=== PATIENT | female | born 1985 | race Caucasian/White ===

== ENCOUNTER 2016-12-06 16:54 | Emergency (ER) | payer OTHER ==
[2016-12-06 17:03] VITALS: BMI 65.1
[2016-12-06] MEDS ORDERED: SODIUM CHLORIDE 1,000 ML IV STA (17:28)
[2016-12-06] MEDS ORDERED: KETOROLAC TROMETHAMINE 30 MG/1 ML VIAL IVPUSH ONE (17:28)
[2016-12-06] MEDS ORDERED: KETOROLAC TROMETHAMINE 30 MG/1 ML VIAL ONE (17:45)
--- NOTE | 2016-12-06 18:09 | PDOC ---
History of Present Illness - History of Present Illness Initial Comments: 12/06/16 18:09 Patient is a 31 year old female with significant medical hx of celiac disease, fibroids, intermittent positive rheumatoid factor, fibromyalgia, iron deficiency , and asthma who is presenting to the ED with two days of abdominal pain and nausea. Patient is complaining of diffuse abdominal pain, characterized as pressure and sharp, that worsens with positional change. Her pain also radiates around to the back. Patient endorses having gas with her pain which makes her pain worse. Today the patient had two normal bowel movements without any blood. She notes that she has 2-3 bowel movements a day at baseline. The patient reports she had macaroni and cheese yesterday which aggravated her symptoms associated with celiac but feels that she passed the food through her stool already. She denies any fevers, chills, vomiting or diarrhea. GI: Darius Covarrubias MD Allergies: acetaminophen <Sanjuanita Culp - Last Filed: 12/06/16 19:47> <Kofi Adkins - Last Filed: 12/06/16 19:50> - General Chief Complaint: Pain Stated Complaint: STOMACH PAIN Time Seen by Provider: 12/06/16 17:08 Past History <Sanjuanita Culp - Last Filed: 12/06/16 19:47> - Past Medical History Anemia: Yes Asthma: Yes GI Disorders: Yes (CELIAC) Liver Disease: Yes (elevated liver enzymes) - Immunization History Immunization Up to Date: Yes - Psycho/Social/Smoking Cessation Hx Anxiety: No Suicidal Ideation: No Smoking Status: Yes Smoking History: Current every day smoker Number of Cigarettes Smoked Daily: 2 Information on smoking cessation initiated: Yes 'Breaking Loose' booklet given: 12/06/16 Hx Alcohol Use: No Drug/Substance Use Hx: No Substance Use Type: None <Kofi Adkins - Last Filed: 12/06/16 19:50> - Past Medical History Allergies/Adverse Reactions: Allergies Allergy/AdvReac Type Severity Reaction Status Date / Time acetaminophen [From Tylenol] AdvReac Verified 12/06/16 17:03 Home Medications: Ambulatory Orders Albuterol Sulfate Inhaler - [Ventolin HFA Inhaler -] 1 - 2 inh PO Q4H #1 inhaler 07/13/15 Prednisone [Deltasone -] 40 mg PO DAILY #8 tablet 07/13/15 Tramadol HCl 50 mg PO Q6H #9 tablet 07/13/15 Review of Systems - Review of Systems Comments:: 12/06/16 18:10 CONSTITUTIONAL: No fever, no chills, no fatigue EYES: No visual changes ENT: No ear pain, no sore throat CARDIOVASCULAR: No chest pain, no palpitations RESPIRATORY: No cough, no SOB GI: Nausea, abdominal pain. No vomiting, no constipation, no diarrhea GENITOURINARY: No dysuria, no frequency, no hematuria MUSKULOSKELETAL: No backpain, no joint pain, no myalgias SKIN: No rash NEURO: No headache <Sanjuanita Culp - Last Filed: 12/06/16 19:47> *Physical Exam - Vital Signs Last Vital Signs Temp Pulse Resp BP Pulse Ox 98.0 F 81 20 138/70 100 12/06/16 17:00 12/06/16 17:00 12/06/16 17:00 12/06/16 17:00 12/06/16 17:00 - Physical Exam Comments: 12/06/16 18:12 CONSTITUTIONAL: Well-appearing; well-nourished; in no apparent distress HEAD: Normocephalic; atraumatic EYES: PERRL; EOM intact ENMT: External appears normal; normal oropharynx NECK: Supple; non-tender; no cervical lymphadenopathy CARD: Normal S1, S2; no murmurs, rubs, or gallops RESP: Normal chest excursion with respiration; breath sounds clear and equal bilaterally; no wheezes, rhonchi, or rales ABD: Soft, non-distended; suparpubic and LLQ tenderness; no palpable organomegaly, no palpable hernias EXT: Normal ROM in all four extremities; non-tender to palpation; distal pulses intact SKIN: Warm, dry, no rash NEURO: No focal neurological deficiencies. <Sanjuanita Culp - Last Filed: 12/06/16 19:47> - Vital Signs Last Vital Signs Temp Pulse Resp BP Pulse Ox 98.0 F 81 20 138/70 100 12/06/16 17:00 12/06/16 17:00 12/06/16 17:00 12/06/16 17:00 12/06/16 17:00 <Kofi Adkins - Last Filed: 12/06/16 19:50> ED Treatment Course - LABORATORY CBC & Chemistry Diagram: 12/06/16 17:44 12/06/16 17:44 - RADIOLOGY Radiograph Interpretation: 12/06/16 19:47 Bladder US Impression: A 3cm left ovarian cyst is seen containing intraluminal debris/ hemorrhage. There is no Doppler evidence of ovarian torsion. Uterine leiomyomas. Reported By: Jose Soraino MD - Medications Given in the ED: ED Medications Discontinued Medications Generic Name Dose Route Start Last Admin Trade Name Freq PRN Reason Stop Dose Admin Ketorolac Tromethamine 30 mg 12/06/16 17:28 12/06/16 17:51 Toradol Injection - IVPUSH 12/06/16 17:29 30 mg ONCE ONE Administration <Sanjuanita Culp - Last Filed: 12/06/16 19:47> - LABORATORY CBC & Chemistry Diagram: 12/06/16 17:44 12/06/16 17:44 - RADIOLOGY Radiology Studies Ordered: Category Date Time Status PELVIS(OTHER) US [US] Stat Ultrasound 12/06/16 17:28 Ordered TRANSVAGINAL ULTRASOUND US [US] Stat Ultrasound 12/06/16 17:28 Ordered - Medications Given in the ED: ED Medications Discontinued Medications Generic Name Dose Route Start Last Admin Trade Name Freq PRN Reason Stop Dose Admin Ketorolac Tromethamine 30 mg 12/06/16 17:28 12/06/16 17:51 Toradol Injection - IVPUSH 12/06/16 17:29 30 mg ONCE ONE Administration <Kofi Adkins - Last Filed: 12/06/16 19:50> Medical Decision Making - Medical Decision Making 12/06/16 18:45 Patient is well-appearing 31-year-old female with history of celiac disease, fibromyalgia, fibroid uterus, who presents with atraumatic abdominal pain that on the physical examination the ER is localized to the left lower quadrant and suprapubically. Differential diagnoses includes fibroids versus ovarian cyst versus ovarian torsion versus PID. We'll administer IV fluids and IV Toradol; will obtain transvaginal pelvic ultrasound. Will reassess. 12/06/16 19:48 Patient is reassessed. Patient is resting comfortably, significantly decreased level of pain, tolerates by mouth. CBC/CMP/UA within normal limit. There is no evidence of pyuria. Patient is UCG negative. Transvaginal pelvic ultrasound show a persistently leiomyoma as well as interval development of a 3 cm left ovarian cyst with debris and hemorrhage. There is no evidence of ovarian torsion. Patient's been informed of the ultrasound findings and will be discharged with ARRT TECHNOLOGIST follow-up. <Kofi Adkins - Last Filed: 12/06/16 19:50> *DC/Admit/Observation/Transfer - Attestations Scribe Attestion: 12/06/16 18:12 Documentation prepared by Sanjuanita Culp, acting as medical sales consultant for Kofi Adkins MD. <Sanjuanita Culp - Last Filed: 12/06/16 19:47> - Attestations Physician Attestion: 12/06/16 18:44 The documentation was prepared by the scribe under my direct supervision. I have reviewed the documentation which correctly represents the findings, medical decision-making and critical action taken by me. <Kofi Adkins - Last Filed: 12/06/16 19:50> Diagnosis at time of Disposition: Cyst of ovary Abdominal pain Qualifiers: Abdominal location: left lower quadrant Qualified Code(s): R10.32 - Left lower quadrant pain - Discharge Dispostion Disposition: HOME Condition at time of disposition: Stable - Referrals Referrals: Farzana Salgado MD [Primary Care Provider] - - Patient Instructions Printed Discharge Instructions: DI for Abdominal Pain-Adult, DI for Ovarian Cyst
[2016-12-06] MEDS ORDERED: ONDANSETRON 4 MG/2 ML VIAL IVPUSH ONE (18:10)
[2016-12-06 18:33] LABS: URINE APPEARANCE CLEAR; URINE BILIRUBIN NEGATIVE (NEGATIVE); URINE BLOOD NEGATIVE (NEGATIVE); URINE COLOR YELLOW; URINE GLUCOSE (UA) NEGATIVE (NEGATIVE); URINE KETONE TRACE (NEGATIVE); URINE LEUK ESTERASE NEGATIVE (NEGATIVE); URINE NITRITE NEGATIVE (NEGATIVE)
[2016-12-06 18:55] LABS: BASOPHIL 0.7 % (0-2.0); EOSINOPHIL 1.8 % (0-4.5); MCHC 29.2 g/dl (32.0-36.0); MEAN CELL VOLUME 64.6 fl (80-96); MEAN PLT VOLUME 10.3 fl (7.5-11.1); NEUTROPHILS 57.8 % (42.8-82.8); PLATELET COUNT 192 K/MM3 (134-434); RDW 17.7 % (11.6-15.6); WHITE BLOOD COUNT 6.4 K/mm3 (4.0-10.0)
[2016-12-06 18:56] LABS: MCH 18.9 pg (25.7-33.7)
[2016-12-06 19:18] LABS: ALBUMIN 3.7 g/dl (3.4-5.0); ANION GAP 8 (8-16); CALCIUM 8.5 mg/dL (8.5-10.1); CO2 24 mmol/L (21-32); GLUCOSE,RANDOM 72 mg/dL (74-106); SGPT/ALT 25 U/L (12-78)
[2016-12-06 19:20] LABS: ALK PHOS 109 U/L (45-117); BILIRUBIN,TOTAL 0.3 mg/dL (0.2-1.0); CREATININE 0.6 mg/dL (0.55-1.02); TOT PROT 7.6 g/dl (6.4-8.2)
[2016-12-06 19:35] LABS: URINE PROTEIN 1+ (NEGATIVE)
[2016-12-06 19:36] LABS: SGOT/AST 28 U/L (15-37)
[2016-12-06 20:07] VITALS: BP 119/69; PULSE 79; TEMP 98.6
[2016-12-06 20:20] LABS: URINE MUCUS FEW; URINE RBC 1 /hpf (0-3); URINE WBC <1 /hpf (3-5)
[2016-12-06 20:23] LABS: HYPOCHROMIA 3+; MICROCYTOSIS 2+; PLATELET ESTIMATE ADEQUATE (NORMAL); POIKILOCYTOSIS 1+
[2016-12-06 20:24] LABS: OVALOCYTES 1+
[2016-12-06 20:25] LABS: POLYCHROMASIA 1+
== END 2016-12-06 20:08 | disposition home or self-care (01) ==
LOC: JER 16:54
PROC: 3E0333Z Introduction of Anti-inflammatory into Peripheral Vein, Percutaneous Approach (ICD-10-PCS; principal; 2016-12-06)
PROC: 3E0337Z Introduction of Electrolytic and Water Balance Substance into Peripheral Vein, Percutaneous Approach (ICD-10-PCS; 2016-12-06)
DX: N83.209 Unspecified ovarian cyst, unspecified side (principal); R10.32 Left lower quadrant pain; K90.0 Celiac disease; M79.7 Fibromyalgia
CPT/HCPCS: 36415; 76856-TC; 80053; 81003; 81015; 84703; 85025; 87086; 96361; 96374; 99284-25

== ENCOUNTER 2017-06-07 20:06 | Emergency (ER) | payer OTHER ==
[2017-06-07 20:35] VITALS: BP 124/72; PULSE 100; TEMP 98.3; BMI 28.0
--- NOTE | 2017-06-08 00:10 | PDOC ---
Attending Attestation - HPI HPI: 06/08/17 00:41 The patient is a 31 year old female , with a significant past medical history of asthma, anemia, celiac disease, fibroids, fibromyalgia, iron deficiency who presents to the emergency department with, approx. 2 days of vaginal bleeding and rhinorrhea. The patient reports she took a test yesterday that was positive so she wanted to come to the ED to be evaluated. The patient reports she has had 2 prior miscarriages (1st at 12 weeks of and the 2nd at 4 weeks of ). The patient reports her symptoms do not feel similar to past miscarriages. The patient reports one episode of epistaxis prior to arrival. The patient reports she has received a flu shot in early April and her LMP was 05/08/17. She denies recent fevers, chills, headache or dizziness. She denies recent, nausea, vomit, diarrhea or constipation. She denies recent dysuria, frequency, urgency. She denies recent chest pain or shortness of breath. Allergies: acetaminophen Primary Care Physician: Dr. Renuka Zimmer - Physicial Exam PE: 06/08/17 00:42 GENERAL: Awake, alert, and fully oriented, in no acute distress HEAD: No signs of trauma EYES: PERRLA, EOMI, sclera anicteric, conjunctiva clear ENT: Auricles normal inspection, hearing grossly normal, nares patent, oropharynx clear without exudates. Moist mucosa NECK: Normal ROM, supple, no lymphadenopathy, JVD, or masses LUNGS: Breath sounds equal, clear to auscultation bilaterally. No wheezes, and no crackles HEART: +Tachycardia. Normal S1 and S2, no murmurs, rubs or gallops PELVIC: Vaginal vault is clear without blood or discharge. No cervical motion tenderness. Adnexa are nontender and without masses ABDOMEN: Soft, nontender, normoactive bowel sounds. No guarding, no rebound. No masses EXTREMITIES: Normal range of motion, no edema. No clubbing or cyanosis. No cords, erythema, or tenderness NEUROLOGICAL: Cranial nerves II through XII grossly intact. Normal speech, normal gait SKIN: Warm, Dry, normal turgor, no rashes or lesions noted. <Alfonso Adan - Last Filed: 06/08/17 00:57> - Resident Resident Name: Telma Keene - ED Attending Attestation I have performed the following: I have examined & evaluated the patient, The case was reviewed & discussed with the resident, I agree w/resident's findings & plan, Exceptions are as noted - Medical Decision Making 06/08/17 00:10 I, Dr. Rita Plummer, DO, attest that this document has been prepared under my direction and personally reviewed by me in its entirety. I further attest, that it accurately reflects all work, treatment, procedures and medical decision -making performed by me. 06/08/17 00:34 a/p: 31yo female with vaginal bleeding - had +preg 5 days ago and now with bleeding - passed clots -hx of iron deficiency anemia on ferritin infusions -will check labs, ucg, beta, transvag u/s, type and screen, cbc -will do pelvic exam -will monitor and reassess 06/08/17 01:53 discussed all lab and imaging results with the patient. gave patient a copy of the ultrasound report to take to her doctor tomorrow has appt with PMD tomorrow at [facility] who is giving the patient a referral to a new MANAGER OF REVENUE hgb stable preg negative given motrin for headache bun/cr normal stable for d/c to home recommended drinking plenty of fluids <Rita Plummer - Last Filed: 06/08/17 01:54> Heart Score/ECG Review - ECG Intrepretation Comment:: 06/08/17 01:29 sinus at 83, nl axis, nl interval, no acute st/t wave findings <Rita Plummer - Last Filed: 06/08/17 01:54>
[2017-06-08 00:26] LABS: URINE APPEARANCE CLEAR; URINE BILIRUBIN NEGATIVE (NEGATIVE); URINE BLOOD 2+ (NEGATIVE); URINE COLOR LTYELLOW; URINE GLUCOSE (UA) NEGATIVE (NEGATIVE); URINE KETONE NEGATIVE (NEGATIVE); URINE LEUK ESTERASE NEGATIVE (NEGATIVE); URINE NITRITE NEGATIVE (NEGATIVE); URINE PROTEIN NEGATIVE (NEGATIVE); URINE UROBILINOGEN NEGATIVE mg/dL (0.2-1.0)
--- NOTE | 2017-06-08 00:34 | PDOC ---
History of Present Illness - General Chief Complaint: Vaginal Bleeding Stated Complaint: LIGHTHEADED Time Seen by Provider: 06/07/17 23:52 History Source: Patient Exam Limitations: No Limitations - History of Present Illness Initial Comments: This is a 31 YOF with h/o uterine fibroids, heavy vaginal bleeding, iron deficiency anemia (never requiring transfusion), asthma, fibromyalgia, positive BRITTA, and miscarriage x2 who presents with vaginal bleeding with clots, 8/10 left -sided headache behind her left eye, lightheadedness, generalized weakness, mild SOB, mild palpitations, and mild chest discomfort worsening over the past two days. The vaginal bleeding started bright red and she passed a clot yesterday. The bleeding has since turned dark red. She took a test because she was about 5 days late having her menstrual period, and it was positive. She has been taking Aleve every 12 hours for her headache with the last dose at 11 am. Past History - Past Medical History Allergies/Adverse Reactions: Allergies Allergy/AdvReac Type Severity Reaction Status Date / Time acetaminophen [From Tylenol] AdvReac Verified 06/07/17 20:35 Home Medications: Ambulatory Orders Albuterol Sulfate Inhaler - [Ventolin HFA Inhaler -] 1 - 2 inh PO Q4H #1 inhaler 07/13/15 Cholecalciferol (Vitamin D3) [Vitamin D3 -] 50,000 unit PO WEEKLY 12/06/16 Anemia: Yes Asthma: Yes COPD: No GI Disorders: Yes (CELIAC) Liver Disease: Yes (elevated liver enzymes) - Immunization History Immunization Up to Date: Yes - Suicide/Smoking/Psychosocial Hx Smoking Status: Yes Smoking History: Never smoked Have you smoked in the past 12 months: No Number of Cigarettes Smoked Daily: 2 Information on smoking cessation initiated: No 'Breaking Loose' booklet given: 12/06/16 Hx Alcohol Use: No Drug/Substance Use Hx: No Substance Use Type: None Review of Systems - Review of Systems Able to Perform ROS?: Yes Constitutional: Yes: Other (hot flashes). No: Chills, Fever, Unexplained wgt Loss HEENTM: Yes: Nose Bleeding. No: Nose Congestion, Throat Pain Respiratory: Yes: Shortness of Breath (mild). No: Cough Cardiac (ROS): Yes: Chest Pain (mild), Lightheadedness, Palpitations (rapid). No: Edema, Syncope ABD/GI: Yes: Constipated, Diarrhea, Nausea (mild). No: Vomiting : Yes: Frequency. No: Burning, Dysuria Musculoskeletal: No: Back Pain, Neck Pain Integumentary: No: Bruising, Rash Neurological: Yes: Headache. No: Numbness, Tingling, Weakness Endocrine: No: Unexplained Weight Gain, Unexplained Weight Loss *Physical Exam - Vital Signs Last Vital Signs Temp Pulse Resp BP Pulse Ox 98.3 F 100 H 17 124/72 100 06/07/17 20:32 06/07/17 20:32 06/07/17 20:32 06/07/17 20:32 06/07/17 20:32 - Physical Exam General Appearance: Yes: Nourished, Appropriately Dressed, Mild Distress ( initially very tearful with extending wait period in the waiting room, becomes calm with conversation and subsequently in no distress), Other (adult female who is appropriately answering questions) HEENT: positive: EOMI, Normal Voice, Hearing Grossly Normal. negative: Scleral Icterus (R), Scleral Icterus (L), Nasal Congestion Neck: positive: Trachea midline, Supple. negative: Tender, Rigid Respiratory/Chest: positive: Lungs Clear, Normal Breath Sounds. negative: Respiratory Distress, Crackles, Rhonchi, Stridor, Wheezing Cardiovascular: positive: Regular Rhythm, Regular Rate. negative: Murmur Female Pelvic Exam: positive: normal external exam, cervical os closed, normal adnexa, vaginal bleeding (scan dark blood just external to the cervical os, no discharge). negative: CMT, adnexal tenderness Gastrointestinal/Abdominal: positive: Normal Bowel Sounds, Flat, Soft. negative : Tender, Organomegaly, Pulsatile Mass, Guarding Musculoskeletal: positive: Normal Inspection. negative: Decreased Range of Motion, Vertebral Tenderness Extremity: positive: Normal Capillary Refill, Normal Inspection, Normal Range of Motion. negative: Tender, Cyanosis Integumentary: positive: Normal Color, Dry, Warm. negative: Erythema, Rash, Bruising Neurologic: positive: improvement analyst II-XII NML intact, Fully Oriented, Alert, Normal Mood/ Affect, Normal Response, Motor Strength 5/5 ED Treatment Course - LABORATORY CBC & Chemistry Diagram: 06/08/17 00:22 06/08/17 00:22 Medical Decision Making - Medical Decision Making 31F with h/o fibroids and iron deficiency anemia not requiring xfusion in the past p/w vaginal bleeding, CHEN, lightheaded, palpitations. On exam she is tachycardic, initially tearful/anxious but calms down with conversation. Essentially normal exam other than tachycardia, on pelvis she has scant dark blood. Ordered is CBCD, CMP, TS, coags, quant hCG, UA cx, EKG, transvaginal US, Motrin 800mg. *DC/Admit/Observation/Transfer Diagnosis at time of Disposition: Lightheadedness, Dysfunctional uterine bleeding, Acute stress reaction Headache Qualifiers: Headache type: unspecified Headache chronicity pattern: unspecified pattern Intractability: not intractable Qualified Code(s): R51 - Headache Ovarian cyst Qualifiers: Laterality: unspecified laterality Qualified Code(s): N83.209 - Unspecified ovarian cyst, unspecified side - Discharge Dispostion Disposition: HOME Condition at time of disposition: Stable Admit: No - Referrals Referrals: Renuka Casanova MD [Primary Care Provider] - - Patient Instructions Printed Discharge Instructions: DI for Uterine Fibroids, DI for Ovarian Cyst Additional Instructions: You were seen in the ER for vaginal bleeding, headache, and lightheadedness. We did lab work on your blood and urine and it did not show any concerning findings related to your symptoms. You are not anemic at this time and your tests here in the ER are negative. Your ultrasound showed a ~5 cm ovarian cyst but no other findings and nothing concerning. We gave you Motrin here in the ER. Please follow up with your regular doctor or an CMA OR LPN within the next week. Return to the ER for any new or worsening symptoms. - Post Discharge Activity
[2017-06-08 00:35] LABS: BASO % 0.6 % (0-2.0); EOS % 1.3 % (0-4.5); HEMATOCRIT 40.5 % (32.4-45.2); HEMOGLOBIN 12.8 GM/dL (10.7-15.3); LYMPH % 24.7 % (8-40); MCH 25.9 pg (25.7-33.7); MCHC 31.6 g/dl (32.0-36.0); MEAN CELL VOLUME 81.9 fl (80-96); MEAN PLT VOLUME 9.7 fl (7.5-11.1); MONO % 12.2 % (3.8-10.2); NEUT % 61.2 % (42.8-82.8); PLATELET COUNT 209 K/MM3 (134-434); RBC 4.95 M/mm3 (3.60-5.2); WHITE BLOOD COUNT 6.2 K/mm3 (4.0-10.0)
[2017-06-08 00:36] LABS: EPI CELLS RARE /HPF (FEW); URINE HYALINE CAST 1 /lpf; URINE MUCUS RARE
[2017-06-08] MEDS ORDERED: IBUPROFEN 400 MG TABLET (FP) PO ONE ×2 (00:43→01:37)
[2017-06-08 00:52] LABS: INR 0.98 (0.82-1.09); PROTHROMBIN TIME (PATIENT) 11.1 SEC (9.98-11.88)
[2017-06-08 01:00] LABS: ALBUMIN 3.7 g/dl (3.4-5.0); ANION GAP 11 (8-16); BILIRUBIN,TOTAL 0.2 mg/dL (0.2-1.0); BLOOD UREA NITROGEN 13 mg/dL (7-18); CALCIUM 8.9 mg/dL (8.5-10.1); CHLORIDE 105 mmol/L (98-107); CO2 23 mmol/L (21-32); CREATININE 0.6 mg/dL (0.55-1.02); GLUCOSE,RANDOM 92 mg/dL (74-106); POTASSIUM 3.9 mmol/L (3.5-5.1); SGOT/AST 141 U/L (15-37); SGPT/ALT 283 U/L (12-78); SODIUM 139 mmol/L (136-145); TOT PROT 8.2 g/dl (6.4-8.2)
[2017-06-08 01:03] LABS: ALK PHOS 166 U/L (45-117)
--- NOTE | 2017-06-08 13:26 | EKG ---
Test Reason : Blood Pressure : / mmHG Vent. Rate : 083 BPM Atrial Rate : 083 BPM P-R Int : 134 ms QRS Dur : 082 ms QT Int : 382 ms P-R-T Axes : 000 060 051 degrees QTc Int : 448 ms NORMAL SINUS RHYTHM NORMAL ECG NO PREVIOUS ECGS AVAILABLE Confirmed by MD IVON, CORTEZ ([id number]) on 06/08/2017 1:26:21 PM Referred By: Confirmed By:CORTEZ DEL VALLE MD
== END 2017-06-08 02:19 | disposition home or self-care (01) ==
LOC: JER 20:06
DX: N93.8 Other specified abnormal uterine and vaginal bleeding (principal); F43.8 Other reactions to severe stress; N83.201 Unspecified ovarian cyst, right side; D25.9 Leiomyoma of uterus, unspecified; D50.8 Other iron deficiency anemias
CPT/HCPCS: 36415; 76856-TC; 80053; 81003; 81015; 84702; 84703; 85025; 85610; 86850; 86900; 86901; 87086; 93005; 93010; 99283-25

== ENCOUNTER 2018-04-29 09:55 | Inpatient (IN) | payer OTHER ==
[2018-04-29] MEDS ORDERED: ELECTROLYTE-148 SOLN 1,000 ML IV SCH (10:45)
[2018-04-29] MEDS ORDERED: CITRIC ACID/SODIUM CITRATE 30 ML UNIT-DOSE CUP PO ONE (10:45)
[2018-04-29] MEDS ORDERED: ELECTROLYTE-148 SOLN 1,000 ML IV ONE (10:45)
[2018-04-29 10:50] VITALS: BMI 43.8
--- NOTE | 2018-04-29 11:36 | HP ---
Past Medical History - Admission History of Present Illness: 32 yo @ 39 3/7 wks by first trimester ultrasound, EDC 05/03/2018 complicated by: 1. Obesity - early GCT WNL (10/24/17) and early 26+ wks GCT (02/27/18) - 58 lb wt gain Most recent EFW 04/15/2018 - 3398g (78%) 2. Anticardiolipin antibody positive, antiphospholipid antibodies s/p MFM consult declined anticoagulation RPR screen positive on preop labs, FTA confirmation negative 3. Fibroid uterus - last scan 6 cm fibroids x 2 placenta with implantation near fibroid 4. GBS positive 5. Anemia - s/p iron infusions 6. Antibody positive on initial labs - negative at 20 wks Patient presents for scheduled primary elective . She reports movement, denies leakage of fluid, vaginal bleeding or contractions History Source: Patient Limitations to Obtaining History: No Limitations - Past Medical History Cardiovascular: No: HTN Pulmonary: Yes: Asthma ...: 3 ...Para: 0 ...Term: 0 ...: 0 ...Spon : 2 ...Induced : 0 ...Multiple Gestation: 0 ...LMP: 07/29/17 ... Weeks Gestation by Dates: 39.1 ...EDC by Dates: 05/05/18 ...EDC by Sono: 05/03/18 Heme/Onc: Yes: Anemia, Hypercoaguable State Rheumatology: Yes: Fibromyalgia, Rheumatoid Arthritis - Past Surgical History Hx Myomectomy: No Hx Transabdominal Cerclage: No Additional Surgical History: Gastroscopy. D&C - Smoking History Smoking history: Never smoked Have you smoked in the past 12 months: No Aproximately how many cigarettes per day: 0 - Alcohol/Substance Use Hx Alcohol Use: No History of Substance Use: reports: None - Social History History of Recent Travel: No Home Medications - Allergies Allergies/Adverse Reactions: Allergies Allergy/AdvReac Type Severity Reaction Status Date / Time ferumoxytol [From Feraheme] Allergy Hives Verified 04/29/18 10:30 iron [From Venofer] Allergy Verified 10/29/17 12:46 acetaminophen [From Tylenol] AdvReac Verified 04/29/18 10:30 - Home Medications Home Medications: Ambulatory Orders Albuterol Sulfate Inhaler - [Ventolin HFA Inhaler -] 1 - 2 inh PO Q4H #1 inhaler 07/13/15 Vit Calc,Iron,Folic [ Vitamins] 1 each PO DAILY 10/29/17 Cetirizine HCl [Zyrtec -] 10 mg PO DAILY 04/29/18 Family Disease History - Family Disease History Family History: Denies Review of Systems - Review of Systems Constitutional: reports: No Symptoms Neck: reports: No Symptoms Cardiovascular: reports: No Symptoms Respiratory: reports: No Symptoms Gastrointestinal: reports: No Symptoms Genitourinary: reports: No Symptoms Musculoskeletal: reports: No Symptoms Integumentary: reports: No Symptoms Endocrine: reports: No Symptoms Psychiatric: reports: No Symptoms Physical Exam - Maternity Vital Signs: Vital Signs Temperature 98.1 F 04/29/18 09:55 Pulse Rate 112 H 04/29/18 09:55 Respiratory Rate 20 04/29/18 09:55 Blood Pressure 131/80 04/29/18 09:55 O2 Sat by Pulse Oximetry (%) Constitutional: Yes: Well Nourished, No Distress, Calm Cardiovascular: Yes: Regular Rate and Rhythm Lungs: Clear to auscultation - Abdominal Exam/OB Number of Fetuses: Single Presentation: Vertex Contractions: No Category: I Accelerations: Non-Uniform Decelerations: None - Physical Exam Edema: No ...Motor Strength: WNL Psychiatric: Yes: Alert, Oriented - Labs Lab Results: PNL: A positive, antibody positive*; RPR NR; HIV neg; HCV neg; HBS Ag neg; Rubella Immune; Varicella Immune; Parvo Immune; GBS positive, GCT x2 WNL; Inheritest (CF/SMA/Fragile X) - neg; Sequential WNL Hemorrhage Risk Assessment - Risk Factors High Risk Factors: Yes: Known coagulopathy Risk Score: 2 Risk Level: High Risk Assessment/Plan 32 yo for primary elective CD 1. Admit to L&D 2. Preop labs reviewed 3. Consents reviewed and signed. Patient adamant she does not want vaginal delivery. Reviewed risks including but not limited to infection, bleeding, hemorrhage from placental implantation site, uterine atony, increased risk of VTE / DVT, injruy to infant. She expressed understanding. 4. Plan for SCDs, TEDs and Lovenox PP 5. category I FHT 6. Ancef supervisor irrigation to OR 7. Will proceed to OR
[2018-04-29] MEDS ORDERED: morphine SULFATE/Preservative Free 0.5 MG/ML (1cc Syringe) ONE (12:14)
[2018-04-29] MEDS ORDERED: ePHEDrine SULFATE 50 MG/1 ML AMPULE ONE (12:14)
[2018-04-29 13:35] LABS: ARTERIAL BLD GAS O2 SATURATION 26.4 % (90-98.9); ARTERIAL BLOOD GAS BASE EXCESS -0.4 meq/l (-2-2); ARTERIAL BLOOD GAS PCO2 59.9 mmHg (35-45); ARTERIAL BLOOD GAS PO2 16.8 mmHg (80-100); ARTERIAL BLOOD GAS pH 7.29 (7.35-7.45)
[2018-04-29 13:39] LABS: VENOUS PC02 45.3 mmHg (38-52); VENOUS PH 7.36 (7.32-7.42); VENOUS PO2 25.9 mmHg (28-48)
--- NOTE | 2018-04-29 13:55 | PN ---
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
[2018-04-29] MEDS ORDERED: OXYTOCIN 20 UNITS in 0.9% NS 20 UNIT/1,000 ML INFUS.BAG IV ONE (13:59)
[2018-04-29] MEDS: OXYTOCIN 20 UNITS in 0.9% NS 20 UNIT/1,000 ML INFUS.BAG IV SCH ×2 (14:00→20:18)
[2018-04-29] MEDS ORDERED: oxyCODONE HCL 5 MG TABLET PO PRN (15:10)
[2018-04-29] MEDS ORDERED: IBUPROFEN 800 MG/8 ML IJ IVPB PRN (15:10)
[2018-04-29] MEDS ORDERED: METHYLERGONOVINE MALEATE 0.2 MG/1 ML AMP IM PRN (15:10)
[2018-04-29] MEDS ORDERED: TUBERCULIN PPD 5 TU/0.1ML SYRINGE (IN PATIENT USE ONLY) ID ONE (18:15)
--- NOTE | 2018-04-29 22:04 | OP ---
DATE OF OPERATION: 04/29/2018 SURGEON: Rosetta Christiansen MD CLEANING CREW MEMBER: Anastacio Lopez MD ANESTHESIA: Domenica Shankar MD ESTIMATED BLOOD LOSS: 700. URINE OUTPUT: 200. INTRAVENOUS FLUIDS GIVEN: 2 L. FINDINGS: Female infant, direct OP position, Apgars 9 and 9, weight 8 pounds 3 ounces; normal-appearing tubes and ovaries bilaterally. INDICATIONS: Patient is a 32-year-old patient at 39+ weeks, desiring elective primary . She has a history of anti-cardiolipin antibody positive with declining anticoagulation in the . She understands the increased risk of venous thromboembolism and pulmonary embolism. She also has a history of multiple fibroids concerning for a placental attachment near one of the fibroids and has history of morbid obesity. She desired primary elective , declining offer for vaginal delivery. She was counseled regarding risks, benefits, alternatives , and complications of procedure including infection, bleeding, damage to surrounding organs such as bowel, bladder, injury to infant, increased risk of hemorrhage, increased risk of hysterectomy, increased risk of venous thromboembolism, and pulmonary embolism. Written consent was obtained. DESCRIPTION OF PROCEDURE: The patient was brought to the operating room. When anesthesia was found to be adequate, patient was prepped and draped in normal sterile fashion, placed in dorsal supine position with leftward tilt. An approximately 11-cm skin incision was made with a knife and carried down to the underlying rectus fascia. Using the knife, the fascia was nicked in midline, extended laterally using the Saucedo scissors. Inferior portion of fascial incision was tented up using Ta clamps, dissected off the underlying rectus muscle using the Saucedo scissors. Attention was brought to the superior portion where, in similar fashion, was tented up using Ta clamps, dissected off the underlying rectus muscles using the Saucedo scissors. The rectus muscles were bluntly midline, and the peritoneum was entered sharply. The Arnav O retractor was inserted into the abdominal cavity and used for better visualization. The vesicouterine peritoneum was entered sharply, and bladder flap was created digitally. Hysterotomy was performed and extended laterally using Saucedo scissors, and amniotomy was performed, clear fluid noted. Infant's head was brought to the hysterotomy site, followed by shoulders and body, delivered atraumatically without difficulty. Cord blood and cord gases were collected and sent. was handed to NICU staff. The placenta was manually extracted. The uterus was cleared of all clot and debris. The uterus was closed using 0 Biosyn in a running layer with a second layer was an imbricated layer. Bilateral gutters were cleared of all clot and debris. Good hemostasis was noted. The vesicouterine peritoneum was reapproximated using 0 Biosyn in running fashion. The peritoneum was closed using 2-0 Biosyn in running fashion. The rectus muscles were reapproximated using 0 Biosyn in an interrupted fashion. The fascia was closed using 0 Vicryl in interrupted fashion. The subcutaneous fat was closed using 0 Biosyn in running fashion, and the skin was reapproximated using 3-0 Vicryl. Patient tolerated the procedure well. Estimated blood loss was 700 mL. Patient was brought to recovery room in stable condition. Suzi [id number] MTDD
[2018-04-30] MEDS: OXYTOCIN 20 UNITS in 0.9% NS 20 UNIT/1,000 ML INFUS.BAG IV SCH (04:44)
[2018-04-30 06:59] LABS: BASO % 0.3 % (0-2.0); EOS % 0.6 % (0-4.5); HEMATOCRIT 38.1 % (32.4-45.2); HEMOGLOBIN 12.3 GM/dL (10.7-15.3); LYMPH % 8.8 % (8-40); MCH 29.7 pg (25.7-33.7); MCHC 32.3 g/dl (32.0-36.0); MEAN CELL VOLUME 92.1 fl (80-96); MEAN PLT VOLUME 10.8 fl (7.5-11.1); MONO % 10.1 % (3.8-10.2); NEUT % 80.2 % (42.8-82.8); PLATELET COUNT 119 K/MM3 (134-434); RBC 4.14 M/mm3 (3.60-5.2); RDW 13.4 % (11.6-15.6); WHITE BLOOD COUNT 9.6 K/mm3 (4.0-10.0)
--- NOTE | 2018-04-30 09:09 | PN ---
Post Progress Note - Subjective Subjective: Patient without acute complaints. No nausea or vomiting. Denies fevers or chills. Pain well controlled. Breast feeding. Post Day: 1 Type of Delivery: Primary C/S Vital Signs: Vital Signs Temperature 98.3 F 04/30/18 06:00 Pulse Rate 104 H 04/30/18 06:00 Respiratory Rate 18 04/30/18 08:40 Blood Pressure 123/72 04/30/18 06:00 O2 Sat by Pulse Oximetry (%) 100 04/29/18 14:40 Breast Exam: Yes: Soft Uterus: Yes: Fundus Firm Incision: Yes: Dressing dry and intact Abdomen/GI: Yes: Abdomen soft Lochia: Yes: Rubra Lochia, amount: Small Extremities: Yes: Calves non-tender Perineum: Yes: Intact Activity: Ambulating - Labs Labs: CBC WBC 9.6 K/mm3 (4.0-10.0) 04/30/18 06:00 RBC 4.14 M/mm3 (3.60-5.2) 04/30/18 06:00 Hgb 12.3 GM/dL (10.7-15.3) 04/30/18 06:00 Hct 38.1 % (32.4-45.2) 04/30/18 06:00 MCV 92.1 fl (80-96) 04/30/18 06:00 MCH 29.7 pg (25.7-33.7) 04/30/18 06:00 MCHC 32.3 g/dl (32.0-36.0) 04/30/18 06:00 RDW 13.4 % (11.6-15.6) 04/30/18 06:00 Plt Count 119 K/MM3 (134-434) L 04/30/18 06:00 MPV 10.8 fl (7.5-11.1) 04/30/18 06:00 Absolute Neuts (auto) 7.7 K/mm3 (1.5-8.0) 04/30/18 06:00 Neutrophils % 80.2 % (42.8-82.8) 04/30/18 06:00 Lymphocytes % 8.8 % (8-40) D 04/30/18 06:00 Monocytes % 10.1 % (3.8-10.2) 04/30/18 06:00 Eosinophils % 0.6 % (0-4.5) 04/30/18 06:00 Basophils % 0.3 % (0-2.0) 04/30/18 06:00 Nucleated RBC % 0 % (0-0) 04/30/18 06:00 Assessment/Plan 32yo P1 s/p Primary C/S, doing well stable, afebrile. The pt is asymptomatic for s/sxs of anemia. care instructions reviewed. Mild thrombocytopenia Will follow Platlet count Continue routine postop care. Ambulation encouraged.
[2018-04-30] MEDS: ENOXAPARIN NA (PORCINE) 40 MG/0.4 ML DISP.SYRIN SQ SCH (09:49)
[2018-04-30] MEDS: IBUPROFEN 600 MG TABLET (FP) PO PRN ×2 (13:48→20:44)
[2018-04-30] MEDS ORDERED: BISACODYL 10 MG SUPP.RECT RC PRN (15:10)
--- NOTE | 2018-04-30 15:25 | PN ---
Progress Note (short form) - Note Progress Note: Anesthesia postop note 32 y/o F s/p spinal anesthesia/ duramorph for section POD#1, vss, aaox3, pain well controlled, sensory motor intact distally No anesthesia complications.
[2018-05-01] MEDS: IBUPROFEN 600 MG TABLET (FP) PO PRN ×3 (04:15→14:39)
[2018-05-01] MEDS: oxyCODONE HCL 5 MG TABLET PO PRN (04:15)
--- NOTE | 2018-05-01 07:32 | PN ---
Post Progress Note - Subjective Subjective: Patient without acute complaints. No nausea or vomiting. Denies fevers or chills. Pain well controlled, ambulating Breast feeding. Post Day: 2 Type of Delivery: Primary C/S Vital Signs: Vital Signs Temperature 97.6 F 04/30/18 22:00 Pulse Rate 115 H 04/30/18 22:00 Respiratory Rate 20 04/30/18 22:00 Blood Pressure 128/68 04/30/18 22:00 O2 Sat by Pulse Oximetry (%) 100 04/29/18 14:40 - Labs Labs: CBC WBC 9.6 K/mm3 (4.0-10.0) 04/30/18 06:00 RBC 4.14 M/mm3 (3.60-5.2) 04/30/18 06:00 Hgb 12.3 GM/dL (10.7-15.3) 04/30/18 06:00 Hct 38.1 % (32.4-45.2) 04/30/18 06:00 MCV 92.1 fl (80-96) 04/30/18 06:00 MCH 29.7 pg (25.7-33.7) 04/30/18 06:00 MCHC 32.3 g/dl (32.0-36.0) 04/30/18 06:00 RDW 13.4 % (11.6-15.6) 04/30/18 06:00 Plt Count 119 K/MM3 (134-434) L 04/30/18 06:00 MPV 10.8 fl (7.5-11.1) 04/30/18 06:00 Absolute Neuts (auto) 7.7 K/mm3 (1.5-8.0) 04/30/18 06:00 Neutrophils % 80.2 % (42.8-82.8) 04/30/18 06:00 Lymphocytes % 8.8 % (8-40) D 04/30/18 06:00 Monocytes % 10.1 % (3.8-10.2) 04/30/18 06:00 Eosinophils % 0.6 % (0-4.5) 04/30/18 06:00 Basophils % 0.3 % (0-2.0) 04/30/18 06:00 Nucleated RBC % 0 % (0-0) 04/30/18 06:00 Assessment/Plan 32yo P1 POD # 2 s/p Primary C/S, doing well stable, afebrile. The pt is asymptomatic for s/sxs of anemia. care instructions reviewed. Mild thrombocytopenia Will follow Platlet count Continue routine postop care. Ambulation encouraged.
[2018-05-01] MEDS: SIMETHICONE 80 MG TAB.CHEW (FP) PO PRN ×3 (10:32→21:38)
[2018-05-01] MEDS: ENOXAPARIN NA (PORCINE) 40 MG/0.4 ML DISP.SYRIN SQ SCH (10:37)
[2018-05-01] MEDS: OXYTOCIN 20 UNITS in 0.9% NS 20 UNIT/1,000 ML INFUS.BAG IV SCH (16:20)
[2018-05-02] MEDS: oxyCODONE HCL 5 MG TABLET PO PRN (02:30)
[2018-05-02] MEDS: SIMETHICONE 80 MG TAB.CHEW (FP) PO PRN (02:30)
[2018-05-02] MEDS: IBUPROFEN 600 MG TABLET (FP) PO PRN (02:31)
--- NOTE | 2018-05-02 03:33 | PN ---
Post Progress Note - Subjective Subjective: Patient without acute complaints. Reports tolerating oral intake without nausea or vomiting. Ambulating without dizziness. Denies fevers or chills. Pain well controlled with oral pain medication. without difficulty. Passing flatus. Post Day: 3 Type of Delivery: Primary C/S Vital Signs: Vital Signs Temperature 97.7 F 05/01/18 21:01 Pulse Rate 99 H 05/01/18 21:01 Respiratory Rate 20 05/01/18 21:01 Blood Pressure 111/60 05/01/18 21:01 O2 Sat by Pulse Oximetry (%) 100 05/01/18 20:59 Breast Exam: Yes: Engorged Uterus: Yes: Fundus Firm, Fundus below umbilicus Incision: Yes: Sutures intact. No: Redness, Oozing Abdomen/GI: Yes: Abdomen soft, Tender, Passing flatus, Tolerating PO. No: Abdominal Distention Lochia: Yes: Serosa Lochia, amount: Moderate Extremities: Yes: Calves non-tender, Edema (+1) Activity: Ambulating - Labs Labs: CBC WBC 9.6 K/mm3 (4.0-10.0) 04/30/18 06:00 RBC 4.14 M/mm3 (3.60-5.2) 04/30/18 06:00 Hgb 12.3 GM/dL (10.7-15.3) 04/30/18 06:00 Hct 38.1 % (32.4-45.2) 04/30/18 06:00 MCV 92.1 fl (80-96) 04/30/18 06:00 MCH 29.7 pg (25.7-33.7) 04/30/18 06:00 MCHC 32.3 g/dl (32.0-36.0) 04/30/18 06:00 RDW 13.4 % (11.6-15.6) 04/30/18 06:00 Plt Count 119 K/MM3 (134-434) L 04/30/18 06:00 MPV 10.8 fl (7.5-11.1) 04/30/18 06:00 Absolute Neuts (auto) 7.7 K/mm3 (1.5-8.0) 04/30/18 06:00 Neutrophils % 80.2 % (42.8-82.8) 04/30/18 06:00 Lymphocytes % 8.8 % (8-40) D 04/30/18 06:00 Monocytes % 10.1 % (3.8-10.2) 04/30/18 06:00 Eosinophils % 0.6 % (0-4.5) 04/30/18 06:00 Basophils % 0.3 % (0-2.0) 04/30/18 06:00 Nucleated RBC % 0 % (0-0) 04/30/18 06:00 Assessment/Plan 32 yo POD # 3 s/p primary CD, afebrile, vital signs stable, doing well 1. Continue routine postoperative care. 2. Encourage ambulation and incentive spirometer use 3. Continue oral pain medication 4. Patient is at an increased risk of VTE To continue Lovenox, will send Rx to patient's pharmacy 5. Anticipate discharge home postoperative day #4
[2018-05-02 07:23] LABS: BASO % 0.3 % (0-2.0); EOS % 1.5 % (0-4.5); HEMATOCRIT 31.7 % (32.4-45.2); HEMOGLOBIN 10.3 GM/dL (10.7-15.3); MCH 30.3 pg (25.7-33.7); MCHC 32.6 g/dl (32.0-36.0); MEAN PLT VOLUME 10.7 fl (7.5-11.1); MONO % 9.3 % (3.8-10.2); NEUT % 67.9 % (42.8-82.8); PLATELET COUNT 137 K/MM3 (134-434); RBC 3.41 M/mm3 (3.60-5.2); RDW 13.5 % (11.6-15.6); WHITE BLOOD COUNT 7.6 K/mm3 (4.0-10.0)
--- NOTE | 2018-05-02 08:01 | DS ---
Physical Exam-PARTS COUNTER SPECIALIST Vital Signs: Vital Signs Temperature 97.7 F 05/01/18 21:01 Pulse Rate 99 H 05/01/18 21:01 Respiratory Rate 20 05/01/18 21:01 Blood Pressure 111/60 05/01/18 21:01 O2 Sat by Pulse Oximetry (%) 100 05/01/18 20:59 Labs: CBC, BMP 05/02/18 06:30 Delivery - Delivery Type of Anesthesia: Spinal Episiotomy/Laceration: None EBL (cc): 700 Delivery, Single - Stages of Labor Date of Delivery: 04/29/18 Time of Delivery: 13:04 Time Placenta Delivered: 13:05 - Condition of Infant Institutional Custodian/Bag Press Operator Present: Yes Name: Heidi Hunter Gender: Female Weight: 8 lb 3 oz Position: OP Total Hours ROM (Hrs/Mins): 3min - 1 Minute Total Score: 9 5 Minutes Total Score: 9 - [place] Feeding Plan Initial Plan: Exclusive throughout hospitalization Discharge Summary Reason For Visit: MATERNAL CARE FOR BENIGN TUMOR OF CORPUS UTERI Current Active Problems Anticardiolipin antibody positive (Acute) Antiphospholipid antibody positive (Acute) Fibroid (Acute) Morbid obesity (Acute) Procedures: Principal: Cesearean delivery Hospital Course: Patient was admitted for elective primary delivery POD # 1 patient ambulated, voiding, passing gas, tolerating oral intake and with adequate pain control. Noted to have mild asymptomatic anemia She fulfilled all criteria for discharge POD #4 Condition: Fair - Instructions Diet, Activity, Other Instructions: Physical activity Resume your normal everyday activity as tolerated no heavy lifting or exercise until seen by your surgeon. You may walk unlimited veronica of and climb stairs. You may resume driving the car when you feel safe and comfortable behind the wheel. No sexual activity as instructed. Wound care If you have a bandage, leave it on, and keep dry for 48-72 hours. After that time discard the outer bandage. If they are tapes on the skin under the out of bandage leave them in place. They will peel off in the next 7 to 10 days. Do Not Peel them off. You may shower the day after surgery. If there are tapes present on the skin, you may shower over them. Diet There are no dietary restrictions. Eat healthy, high-fiber foods. Drink 6 to 8 glasses of liquid each day. This will assist in keeping your bowels are regular. Pain management You may take Tylenol or acetaminophen or Ibuprofen (for example, Motrin, Advil etc.) from my pain prescription medication is ordered should be taken as prescribed for moderate to severe pain. Call MD for any of the following: Severe pain not relieved by medication Fever of 101 or higher Excessive bleeding or drainage on dressing Inability to urinate [facility] Reference #: [id number] Referrals: Rosetta Christiansen MD [Staff Physician] - Disposition: HOME - Home Medications Comprehensive Discharge Medication List: Ambulatory Orders Albuterol Sulfate Inhaler - [Ventolin HFA Inhaler -] 1 - 2 inh PO Q4H #1 inhaler 07/13/15 Vit Calc,Iron,Folic [ Vitamins] 1 each PO DAILY 10/29/17 Cetirizine HCl [Zyrtec -] 10 mg PO DAILY 04/29/18 Enoxaparin [Lovenox -] 40 mg SQ DAILY #30 disp.syrin 05/02/18 Oxycodone HCl/Acetaminophen [Percocet 5-325 mg Tablet] 1 tab PO Q6H #10 tablet MDD 4 05/02/18
[2018-05-02 09:24] VITALS: BP 115/60; PULSE 93; TEMP 97.8
[2018-05-02] MEDS: ENOXAPARIN NA (PORCINE) 40 MG/0.4 ML DISP.SYRIN SQ SCH (10:00)
--- NOTE | 2018-05-06 13:59 | PATH ---
Surgical Pathology Report Patient Name: IZAIAH ESCOTO Med. Rec. 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 Electronically Signed Katie Beyer M.D. Gross Description The specimen is received fresh labeled placenta and is a 524 gram, 15.0 x 14.5 x 3.5 cm. placenta with attached membranes and umbilical cord. The attached membranes are walter, translucent with focal opacities and insert marginally. The umbilical cord measures 14 cm. in length and averages 1 cm. in diameter. The cord inserts eccentrically, 3.5 cm. to the nearest margin. No true knots or strictures are identified. Cut surface of the umbilical cord reveals 3 vessels. The surface is gunn blue with moderate fibrin deposition and appropriate caliber vessels. The maternal surface is red-brown with focal defects. Sectioning reveals red-brown, spongy parenchyma. No lesions are identified. Auto Winder sections are submitted in three cassettes as follows: 1- membrane rolls and umbilical cord; 2-3- full thickness sections of placenta. 05/03/2018 [facility]2018
== END 2018-05-02 18:42 | disposition home or self-care (01) | DRG 540 ==
LOC: JLDR 09:55 → J3W 15:30
PROVIDERS: ADMIT Obstetrics & Gynecology; ATTEND Obstetrics & Gynecology
PROC: 10D00Z1 Extraction of Products of Conception, Low, Open Approach (ICD-10-PCS; principal; 2018-04-29)
DX: O34.219 Maternal care for unspecified type scar from previous cesarean delivery (principal); O34.13 Maternal care for benign tumor of corpus uteri, third trimester; O99.824 Streptococcus B carrier state complicating childbirth; O99.02 Anemia complicating childbirth; O99.214 Obesity complicating childbirth; E66.01 Morbid (severe) obesity due to excess calories; O99.113 Other diseases of the blood and blood-forming organs and certain disorders involving the immune mechanism complicating pregnancy, third trimester; Z3A.39 39 weeks gestation of pregnancy; Z37.0 Single live birth; Z68.41 Body mass index [BMI] 40.0-44.9, adult
CPT/HCPCS: 36415; 36600; 82803; 85025; 88307-TC; 94010

== ENCOUNTER 2020-12-08 06:07 | Inpatient (IN) | payer OTHER ==
[2020-12-08] MEDS ORDERED: CITRIC ACID/SODIUM CITRATE 30 ML UNIT-DOSE CUP PO ONE (06:45)
[2020-12-08] MEDS ORDERED: ELECTROLYTE-148 SOLN 1,000 ML IV ONE (06:45)
[2020-12-08 07:54] VITALS: BMI 43.1
[2020-12-08] MEDS ORDERED: ELECTROLYTE-148 SOLN 500 ML IV ONE (08:05)
[2020-12-08] MEDS ORDERED: ACETAMINOPHEN 325 MG TABLET (FP) PO PRN (08:19)
[2020-12-08] MEDS ORDERED: ONDANSETRON 4 MG/2 ML VIAL IVPUSH PRN (08:19)
[2020-12-08] MEDS ORDERED: morphine SULFATE/PF 0.5 MG/ML (2cc Syringe - QUVA) ONE (08:28)
[2020-12-08] MEDS ORDERED: PHENYLEPHRINE HCL 10 MG/1 ML SINGLE DOSE VIAL ONE (08:28)
[2020-12-08] MEDS ORDERED: OXYTOCIN 10 UNITS/ML VIAL ONE ×4 (09:22)
[2020-12-08] MEDS ORDERED: ceFAZolin SODIUM 1 GM VIAL ONE ×2 (09:23)
[2020-12-08 09:27] LABS: CORD PCO2 39.9 mmHg (30-78); CORD pH 7.378 (7.14-7.44)
[2020-12-08 09:30] LABS: CORD HCO3 26.7 mmHg (20-29); CORD PCO2 58.5 mmHg (30-78); CORD pH 7.277 (7.14-7.44)
[2020-12-08] MEDS ORDERED: BENZOCAINE 28 GM HEMORRHOIDAL OINTMENT TP PRN (10:22)
[2020-12-08] MEDS ORDERED: IBUPROFEN 600 MG TABLET (FP) PO PRN (10:22)
[2020-12-08] MEDS ORDERED: METHYLERGONOVINE MALEATE 0.2 MG/1 ML AMP IM PRN (10:22)
[2020-12-08] MEDS ORDERED: oxyCODONE HCL 5 MG TABLET PO PRN (10:22)
[2020-12-08] MEDS ORDERED: IBUPROFEN 800 MG/8 ML IJ IVPB PRN (10:22)
[2020-12-08] MEDS ORDERED: BENZOCAINE 20% 57 GM BOTTLE TP PRN (10:22)
[2020-12-08] MEDS ORDERED: WITCH HAZEL 50% (TUCKS) 40 PAD/JAR PAD TP PRN (10:22)
[2020-12-08] MEDS ORDERED: ePHEDrine SULFATE 50 MG/1 ML AMPULE ONE (11:12)
[2020-12-08] MEDS ORDERED: OXYTOCIN 20 UNITS in 0.9% NS 20 UNIT/1,000 ML INFUS.BAG IV ONE (12:29)
[2020-12-09] MEDS: ENOXAPARIN NA (PORCINE) 40 MG/0.4 ML DISP.SYRIN SQ SCH (10:19)
[2020-12-09 10:20] LABS: BASO % 0.9 % (0-2.0); EOS % 0.9 % (0-4.5); HEMATOCRIT 43.2 % (32.4-45.2); HEMOGLOBIN 13.7 GM/dL (10.7-15.3); LYMPH % 8.5 % (8-40); MCH 28.3 pg (25.7-33.7); MCHC 31.7 g/dl (32.0-36.0); MEAN CELL VOLUME 89.3 fl (80-96); MEAN PLT VOLUME 10.4 fl (7.5-11.1); MONO % 6.1 % (3.8-10.2); NEUT % 83.6 % (42.8-82.8); PLATELET COUNT 155 10^3/uL (134-434); RBC 4.83 M/mm3 (3.60-5.2); RDW 15.5 % (11.6-15.6); WHITE BLOOD COUNT 11.5 K/mm3 (4.0-10.0)
[2020-12-09] MEDS ORDERED: BISACODYL 10 MG SUPP.RECT RC PRN (10:22)
[2020-12-09] MEDS: ELECTROLYTE-148 SOLN 1,000 ML IV SCH ×2 (10:47→14:03)
[2020-12-09] MEDS: IBUPROFEN 600 MG TABLET (FP) PO PRN (15:39)
[2020-12-09] MEDS: oxyCODONE HCL 5 MG TABLET PO PRN (15:40)
[2020-12-10] MEDS: SIMETHICONE 80 MG TAB.CHEW (FP) PO PRN ×2 (02:37→10:08)
[2020-12-10] MEDS: oxyCODONE HCL 5 MG TABLET PO PRN (02:38)
[2020-12-10] MEDS: IBUPROFEN 600 MG TABLET (FP) PO PRN ×2 (02:38→10:08)
[2020-12-10] MEDS: ENOXAPARIN NA (PORCINE) 40 MG/0.4 ML DISP.SYRIN SQ SCH (10:07)
[2020-12-10 12:17] VITALS: BP 106/72; PULSE 85; TEMP 99
== END 2020-12-10 16:20 | disposition home or self-care (01) | DRG 540 ==
LOC: JLDR 06:07 → J3W 14:35
PROVIDERS: ADMIT Obstetrics & Gynecology; ATTEND Obstetrics & Gynecology
PROC: 10D00Z1 Extraction of Products of Conception, Low, Open Approach (ICD-10-PCS; principal; 2020-12-08)
DX: O34.219 Maternal care for unspecified type scar from previous cesarean delivery (principal); O99.214 Obesity complicating childbirth; E66.01 Morbid (severe) obesity due to excess calories; O99.02 Anemia complicating childbirth; D64.9 Anemia, unspecified; O34.13 Maternal care for benign tumor of corpus uteri, third trimester; D25.9 Leiomyoma of uterus, unspecified; Z3A.39 39 weeks gestation of pregnancy; Z37.0 Single live birth; Z88.8 Allergy status to other drugs, medicaments and biological substances; Z91.018 Allergy to other foods; Z91.011 Allergy to milk products
CPT/HCPCS: 36415; 36600; 80053; 82803; 85025; 85610; 85730; 86780; 86850; 86900; 86901; 87389; C9803; U0003; U0005

== ENCOUNTER 2023-12-18 11:36 | Emergency (ER) | payer OTHER ==
[2023-12-18 11:43] VITALS: BP 130/84; PULSE 93; RESP 20; TEMP 97.9; BMI 44.3
[2023-12-18] MEDS: LACTATED RINGERS SOLUTION 1000 ML INFUS.BAG IV ONE (13:00)
[2023-12-18 13:22] LABS: INR 1.07 (0.83-1.09); PROTHROMBIN TIME (PATIENT) 12.3 SEC (9.7-13.0)
[2023-12-18 13:24] LABS: BASO % 1.5 % (0-2.0); EOS % 1.8 % (0-4.5); HEMATOCRIT 32.2 % (32.4-45.2); HEMOGLOBIN 9.7 GM/dL (10.7-15.3); LYMPH % 21.1 % (8-40); MCH 21.3 pg (25.7-33.7); MEAN CELL VOLUME 70.7 fl (80-96); MEAN PLT VOLUME 9.4 fl (7.5-11.1); MONO % 13.7 % (3.8-10.2); NEUT % 61.9 % (42.8-82.8); PLATELET COUNT 241 10^3/uL (134-434); RBC 4.55 M/mm3 (3.60-5.2); RDW 16.9 % (11.6-15.6); WHITE BLOOD COUNT 6.3 K/mm3 (4.0-10.0)
[2023-12-18 13:25] LABS: ACTIVATED PTT 29.3 SECONDS (25.2-36.5)
[2023-12-18 13:34] LABS: POTASSIUM 4.8 mmol/L (3.5-5.1)
[2023-12-18 13:36] LABS: CALCIUM 8.4 mg/dL (8.5-10.1)
[2023-12-18 13:37] LABS: BLOOD UREA NITROGEN 10.6 mg/dL (7-18); MAGNESIUM 1.9 mg/dL (1.8-2.4)
[2023-12-18 13:40] LABS: CREATININE 0.6 mg/dL (0.55-1.3)
[2023-12-18 13:41] LABS: BILIRUBIN,TOTAL 0.3 mg/dL (0.2-1)
[2023-12-18 13:42] LABS: TOT PROT 7.5 g/dl (6.4-8.2)
[2023-12-18 14:23] LABS: ANISOCYTOSIS 0; MACROCYTOSIS 0
[2023-12-18 14:33] LABS: ROULEAU PRESENT
== END 2023-12-18 15:26 | disposition home or self-care (01) ==
LOC: JER 11:36
DX: D50.9 Iron deficiency anemia, unspecified (principal); R42 Dizziness and giddiness; R00.2 Palpitations
CPT/HCPCS: 36415; 71046-TC-FY; 80053; 82728; 83540; 83550; 83735; 84443; 84703; 85025; 85610; 85730; 86850; 86900; 86901; 93005; 93010; 99285-25